=== PATIENT | male | born 1995 | race Caucasian/White ===

== ENCOUNTER 2016-06-06 21:00 | Emergency (ER) | payer MEDICAID | END 2016-06-07 00:53 | disposition home or self-care (01) | LOC: D.ER 21:00 | DX: M25.572 Pain in left ankle and joints of left foot (principal); M25.571 Pain in right ankle and joints of right foot; Z98.890 Other specified postprocedural states ==

== ENCOUNTER 2016-06-11 22:26 | Emergency (ER) | payer MEDICAID | END 2016-06-12 01:05 | disposition home or self-care (01) | LOC: D.ER 22:26 | DX: M94.0 Chondrocostal junction syndrome [Tietze] (principal); M25.572 Pain in left ankle and joints of left foot ==

== ENCOUNTER 2016-06-25 20:28 | Emergency (ER) | payer MEDICAID | END 2016-06-25 21:40 | disposition home or self-care (01) | LOC: D.ER 20:28 | DX: S93.402A Sprain of unspecified ligament of left ankle, initial encounter (principal); X50.0XXA Overexertion from strenuous movement or load, initial encounter; X50.9XXA Other and unspecified overexertion or strenuous movements or postures, initial encounter; Y93.89 Activity, other specified; Y92.89 Other specified places as the place of occurrence of the external cause; M94.0 Chondrocostal junction syndrome [Tietze] ==

== ENCOUNTER 2016-07-15 10:59 | Emergency (ER) | payer MEDICAID ==
[2016-07-15 11:42] LABS: BASOPHILS 0.1 % (0.0-2.0); EOSINOPHILS 0.4 % (0-7); HEMATOCRIT 46.8 % (42.0-54.0); HEMOGLOBIN 15.4 g/dL (13.5-17.5); IMMATURE GRANULOCYTES 0.2 % (0-5); LYMPHOCYTES 5.1 % (15-50); MCH 30.7 pg (26.0-34.0); MCHC 32.9 g/dL (31.0-37.0); MCV 93.4 fL (80.0-100.0); MEAN PLATELET VOLUME 10.9 fL (7.4-10.4); MONOCYTES 6.7 % (2-11); NEUTROPHILS 87.5 % (40-80); PLATELET COUNT 179 10x3/uL (130-400); RBC 5.01 10x6/uL (4.20-6.10); RDW 12.1 % (11.5-14.5); WBC 10.4 10x3/uL (4.8-10.8)
[2016-07-15 11:54] LABS: ALBUMIN 4.2 g/dL (3.4-5.0); ALKALINE PHOSPHATASE 113 U/L (46-116); ALT (SGPT) 23 U/L (10-68); BILIRUBIN - TOTAL 0.32 mg/dL (0.2-1.3); CALC OSMOLALITY 277 mosm/kg (275-300); CALCIUM 8.8 mg/dL (8.5-10.1); CARBON DIOXIDE 27.1 mmol/L (21.0-32.0); CHLORIDE - SERUM 103 mmol/L (98-107); CREATININE - SERUM 0.9 mg/dL (0.6-1.3); GLUCOSE 92 mg/dL (74-106); LIPASE 62 U/L (73-393); POTASSIUM - SERUM 4.1 mmol/L (3.5-5.1); PROTEIN - SERUM 7.6 g/dL (6.4-8.2); SODIUM 139 mmol/L (136-145); UREA NITROGEN 13 mg/dL (7-18); eGFR NON AFRICAN AMERICAN > 90 mL/min (90-120)
[2016-07-15 12:14] LABS: APPEARANCE CLEAR (CLEAR); BILIRUBIN NEGATIVE (NEGATIVE); COLOR YELLOW (YELLOW); GLUCOSE NEGATIVE (NEGATIVE); KETONE NEGATIVE (NEGATIVE); LEUKOCYTE ESTERASE NEGATIVE (NEGATIVE); NITRITE NEGATIVE (NEGATIVE); PROTEIN NEGATIVE (NEGATIVE); UROBILINOGEN NORMAL (NORMAL)
[2016-07-15 12:16] LABS: BACTERIA FEW /hpf (NONE SEEN); EPITHELIAL CELLS OCC /hpf (0-5)
[2016-07-15 12:17] LABS: MUCUS <1+ /lpf (NONE SEEN); RED CELLS - URINE 0-5 /hpf (0-5); WHITE CELLS - URINE RARE /hpf (0-5)
== END 2016-07-15 13:17 | disposition home or self-care (01) ==
LOC: D.ER 10:59
PROVIDERS: Emergency Medicine
DX: R10.13 Epigastric pain (principal); K52.9 Noninfective gastroenteritis and colitis, unspecified; F17.200 Nicotine dependence, unspecified, uncomplicated

== ENCOUNTER 2016-12-19 23:22 | Emergency (ER) | payer MEDICAID ==
[2016-12-19 23:44] LABS: BASOPHILS 0.3 % (0-2); EOSINOPHILS 0.9 % (0-7); HEMATOCRIT 47.8 % (42.0-54.0); HEMOGLOBIN 16.5 g/dL (13.5-17.5); IMMATURE GRANULOCYTES 0.4 % (0-5); LYMPHOCYTES 32.1 % (15-50); MCH 31.5 pg (26.0-34.0); MCHC 34.5 g/dL (31.0-37.0); MCV 91.4 fL (80.0-100.0); MONOCYTES 6.8 % (2-11); NEUTROPHILS 59.5 % (40-80); RBC 5.23 10x6/uL (4.20-6.10); WBC 7.7 10x3/uL (4.8-10.8)
[2016-12-19 23:47] LABS: PLATELET COUNT 215 10x3/uL (130-400)
[2016-12-19 23:58] LABS: ALBUMIN 4.1 g/dL (3.4-5.0); ANION GAP 15.7 mmol/L (8-16); BILIRUBIN - TOTAL 0.47 mg/dL (0.2-1.3); CALCIUM 8.4 mg/dL (8.5-10.1); CREATININE - SERUM 1.4 mg/dL (0.6-1.3); POTASSIUM - SERUM 3.7 mmol/L (3.5-5.1); PROTEIN - SERUM 7.6 g/dL (6.4-8.2)
[2016-12-20 00:17] LABS: APPEARANCE CLEAR (CLEAR); BILIRUBIN NEGATIVE (NEGATIVE); COLOR YELLOW (YELLOW); GLUCOSE NEGATIVE (NEGATIVE); KETONE NEGATIVE (NEGATIVE); LEUKOCYTE ESTERASE NEGATIVE (NEGATIVE); NITRITE NEGATIVE (NEGATIVE); PROTEIN NEGATIVE (NEGATIVE); UROBILINOGEN NORMAL (NORMAL)
== END 2016-12-20 00:31 | disposition home or self-care (01) ==
LOC: D.ER 23:22
PROVIDERS: Emergency Medicine
DX: S39.011A Strain of muscle, fascia and tendon of abdomen, initial encounter (principal); X58.XXXA Exposure to other specified factors, initial encounter; Y93.89 Activity, other specified; Y92.019 Unspecified place in single-family (private) house as the place of occurrence of the external cause

== ENCOUNTER 2017-06-26 12:52 | Emergency (ER) | payer MEDICAID | END 2017-06-26 16:07 | disposition home or self-care (01) | LOC: D.ER 12:52 | DX: S39.012A Strain of muscle, fascia and tendon of lower back, initial encounter (principal); X58.XXXA Exposure to other specified factors, initial encounter; Y93.89 Activity, other specified; Y92.89 Other specified places as the place of occurrence of the external cause; M62.838 Other muscle spasm ==